=== PATIENT | male | born 1955 | race Two or more races ===

== ENCOUNTER 2020-05-29 07:28 | Outpatient (CLI) | payer OTHER | END 2020-05-29 07:31 | disposition home or self-care (01) | LOC: TOM 07:28 | PROVIDERS: ATTEND Internal Medicine Gastroenterology | DX: R10.13 Epigastric pain (principal) ==

== ENCOUNTER 2020-08-13 11:12 | Outpatient (CLI) | payer OTHER | END 2020-08-13 11:19 | disposition home or self-care (01) | LOC: LAB 11:12 | PROVIDERS: ATTEND Radiology Diagnostic Radiology | DX: N20.0 Calculus of kidney (principal) ==

== ENCOUNTER → 2020-08-16 | Outpatient (CLI) | payer OTHER | END | disposition home or self-care (01) | LOC: TOM 08:58 | PROVIDERS: ATTEND Internal Medicine | DX: I65.21 Occlusion and stenosis of right carotid artery (principal); E11.9 Type 2 diabetes mellitus without complications | CPT/HCPCS: 70491; Q9965 ==